=== PATIENT | female | born 1970 | race Hispanic/Latino ===

== ENCOUNTER 2017-03-07 09:11 | Inpatient (IN) | payer BC ==
[~2017-03-07] VITALS: Ht 157.5 cm; Wt 83.0 kg
[2017-03-18] MEDS ORDERED: IBUPROFEN600 MG PO (16:11)
--- NOTE | 2017-04-01 06:27 | NUR ---
CHG MOUTHWASH AND NASAL SWABS DONE PREOP.
--- NOTE | 2017-04-01 08:45 | NUR ---
04/01/17 0845 Diane Gonzales 7494-PATIENT ARRIVED TO PACU ON 6L MASK O2 SAT 100% PATIENT NONAROUSABLE. ORAL AIRWAY IN PLACE. DRESSING TO LEFT KNEE CDI. CRYO CUFF APPLIED. PALPABLE LEFT PEDAL PULSE. SR.
--- NOTE | 2017-04-01 10:23 | NUR ---
PT TO FLOOR TO ROOM 113 VIA BED, ACCOMPANIED BY PT'S DAUGHTER AND , WELL ALEXIS TRANSFER PROFESSOR. ARRIVED TO ROOM 113 AT 1000, RECIEVED BEDSIDE REPORT FROM ALEXIS. PT VERY DROWSY, AROUSABLE TO VERBAL STIMULI, DENIED PAIN, C/O NAUSEA, BUT FELL ASLEEP AGAIN IMEDIATELY FOLLOWING THIS REPORT. NO EMESIS OR DRY HEAVING. PT EQUATORIAL GUINEAN SPEAKING, DAUGHTER AND BILINGUAL, EQUATORIAL GUINEAN AND YAKUT. ASSESSMENT COMPLETE.
--- NOTE | 2017-04-01 11:06 | NUR ---
PT DROWSY, SLEEPING SOUNDLY, AROUSES TO VERBAL STIMULI. DAUGHTER AND REMAIN AT BEDSIDE. PT TITRATED TO RA, OXYGEN SATURATION LEVEL IS 98% WHILE ASLEEP. PEDAL PULSES EASILY PALPATED, CAPILARY REFILL TO LOWER EXTREMITIES LESS THAN 3 SECONDS, DRESSNG TO LEFT KNEE C/D/I.
--- NOTE | 2017-04-01 11:40 | NUR ---
PT DENIES NAUSEA, DENIES PAIN, REPORTS THAT ITCHING HAS IMPROVED SINCE RECIEVING PRN NUBAIN. ABLE TO WIGGLE TOES, ABLE TO FEEL DULL TOUGH TO BLE, INCLUDING FEET AND TOES, BUT DOES REPORT SOME FEELINGS OF REDUCED SENSATION AND TINGLING TO BLE. DRESSING TO LEFT KNEE C/D/I. PEDAL PULSES EASILY PALPATED, SKIN WARM.
--- NOTE | 2017-04-01 12:29 | NUR ---
PT ABLE TO MOVE FEET AND TOES. ABLE TO FEEL TOUCH TO BILATERAL FEET AND TOES. AROUSED TO VERBAL STIMULI. DRESSING TO LEFT KNEE C/D/I. PEDAL PULSES PALPABLE. PT DENIED PAIN, DID C/O NAUSEA, NO EMESIS. ATE SOME ICE CHIPS.
--- NOTE | 2017-04-01 12:30 | NUR ---
PATIENT IN BED. FAMILY IN ROOM. RN IN WITH PATIENT. NO NEEDS AT THIS TIME.
--- NOTE | 2017-04-01 12:36 | NUR ---
GAVE ZOFRAN 4 MG IV PRN FOR C/O NAUSEA. PT RESTING QUIETLY, FAMILY AT BEDSIDE.
--- NOTE | 2017-04-01 14:00 | NUR ---
FRESH ICE IN CRYO. FRESH ICE WATER. CALL BUTTON IN REACH FAMILY IN ROOM. NO OTHER NEEDS AT THIS TIME.
--- NOTE | 2017-04-01 14:47 | NUR ---
PT INCONTINENT OF LARGE AMOUNT OF URINE. ANILA, PHYSICAL THERAPIST, AND MAXWELL Horton RN ASSISTED PT TO BEDSIDE COMMODE. PT NAUSEATED, HAD SMALL AMOUNT OF EMESIS, AND DRY HEAVED NUMEROUS TIMES. PT REMAINS LETHARGIC. REQUIRED 3 PERSON ASSIST TO TRANSFER BACK TO BED AFTER VOIDING IN BEDSIDE COMMODE. PT NOW RESTING QUIETLY.
--- NOTE | 2017-04-01 14:57 | NUR ---
PATIENT UP TO COMMODE TO VOID, INCONTINENT OF HUGE AMOUNT OF ORANGE URINE. SCOPALIMINE PATCH REMOVED.
--- NOTE | 2017-04-01 15:03 | NUR ---
CALLED JASON DUKES CRNA, NOTIFIED HIM THAT PT HAS BEEN LETHARGIC SINCE ARRIVAL TO FLOOR, AND ALSO THAT PT HAS HAD NAUSEA, AND NOW EMESIS SINCE ARRIVAL TO FLOOR. NOTIFIED HIM THAT MAXWELL Horton RN REMOVED PT'S SCOPALAMINE PATCH WHEN ATTEMPTING TO TRANSFER PT TO AND FROM BEDSIDE COMMODE, AND PT HAD DIFFICULTY REMAINING ALERT ENOUGH TO ASSIST IN TRANSFER. JASON Pereira CRNA STATED THAT HE WOULD COME SEE PT.
--- NOTE | 2017-04-01 15:28 | NUR ---
JASON DUKES CRNA IN TO SEE PT. PT REMAINS DROWSY, SLEEPING WHEN WE ENTERED ROOM. JASON DISCUSSED PT'S DROWSINESS AND NAUSEA WITH PT'S DAUGHTER AND , WHO VERBALIZED UNDERSTANDING OF WHAT JASON DISCUSSED.
--- NOTE | 2017-04-01 16:10 | NUR ---
PATIENT RESTING IN BED. IN ROOM. CALL BUTTON IN REACH.
--- NOTE | 2017-04-01 17:34 | NUR ---
PT UP TO BEDSIDE COMMODE WITH 3 PERSON ASSIST. PT BECAME NAUSEATED AND HAD SMALL AMOUNT OF EMESIS WITH POSITION CHANGE. HAD CLEAR LIQUID DINNER, ONLY TOLERATED APROXIMATELY 50 CC TEA. PT REPORTED FEELING NAUSEATED WITH BROTH, JELLO, JUICE, BUT NO EMESIS WITH DINNER. PT NOW BACK IN BED AFTER USING COMMODE, DENIES FURTHER NAUSEA AT THIS TIME.
--- NOTE | 2017-04-01 18:16 | NUR ---
PATIENT RESTING IN BED WITH EYES CLOSED. FRESH ICE WATER GIVEN. ICE IN CRYO. CALL BUTTON IN REACH. IN ROOM. NO OTHER NEEDS AT THIS TIME.
--- NOTE | 2017-04-01 19:00 | NUR ---
RECEIVED REPORT FROM RN. PATIENT IS RESTING COMFORTABLY IN BED, BREATHING IS EVEN AND UNLABORED, O2 SAT IS 95% ON RA. DENIES NEEDS AT THIS TIME, REPORTS 1/[address] PAIN. ALL ORDERS IN PLACE, CALL LIGHT WITHIN REACH.
--- NOTE | 2017-04-01 19:58 | NUR ---
PATIENT UP TO BEDSIDE COMODE WITH 1PA/FWW/NON-SLIP SOCKS, WHICH SHE TOLERATED WELL WITHOUT COMPLAINTS OF PAIN. PRN ZOFRAN GIVEN DUE TO PATIENT'S COMPAINTS OF NAUSEA AFTER AMBULATION. PATIENT IS NOT CURRENTLY NAUSEATED. PAIN IS 1/10 IN LEFT KNEE, SCHEDULED TORDOL GIVEN. DENIES OTHER NEEDS AT THIS TIME. CALL LIGHT WITHIN REACH.
--- NOTE | 2017-04-01 20:41 | NUR ---
pt complained of pruritis. gave benedryl iv for itching. pt appears in no apparent distress. denies nausea. denies pain. daughter at bedside. all dr porter orders in place. cryo cuff filled with ice. fresh ice water at bedside. knees locked flat on bed. call light in reach.
--- NOTE | 2017-04-01 22:30 | NUR ---
PATIENT RESTING COMFORTABLY IN BED, BREATHING IS EVEN AND UNLABORED. O2 SATURATION IS 91% ON RA, PUT 1L O2 ON PATIENT VIA NC, O2 SAT IS NOW 96%. PAIN IS 1/10 IN LEFT KNEE, SCHEDULED PAIN MEDICATION GIVEN PER EMAR. DENIES OTHER NEEDS AT THIS TIME. ALL ORDERS IN PLACE, CALL LIGHT WITHIN REACH.
--- NOTE | 2017-04-02 01:13 | NUR ---
PATIENT RESTING IN BED COMFORTABLY, O2 SATURATION IS 99% ON 1L O2 VIA NC. REPORTS 1/10 PAIN IN LEFT KNEE. NO NEEDS AT THIS TIME. CALL LIGHT WITHIN REACH.
--- NOTE | 2017-04-02 02:03 | NUR ---
PATIENT UP TO BEDSIDE COMODE USING 1PA/FWW/NON-SLIP SOCKS. REPORTS 1/10 PAIN IN LEFT KNEE. SCHEDULED TORDOL GIVEN. PATIENT REPORTS ITCHING AGAIN, PRN BENEDRYL GIVEN PER EMAR. ASSESSMENT DONE, PATIENT DENIES NEEDS AT THIS TIME. ALL ORDERS IN PLACE, CALL LIGHT WITHIN REACH.
--- NOTE | 2017-04-02 03:48 | NUR ---
PATIENT RESTING COMFORTABLY IN BED. BREATHING IS EVEN AND UNLABORED, O2 SAT IS 97% ON RA. CALL LIGHT WITHIN REACH.
--- NOTE | 2017-04-02 05:01 | NUR ---
PATIENT'S NIGHT WAS UNEVENTFUL. SHE HAS BEEN RESTING COMFORTABLY THROUGHOUT SHIFT. VSS, PAIN HAS BEEN WELL CONTROLLED WITH SCHEDULED PAIN MEDICATION. SHE HAS BEEN RATING HER PAIN AT A 1/10 IN HER LEFT KNEE CONSISTENTLY THROUGHOUT SHIFT. AMBULATING TO BEDSIDE COMODE WITH 1PA/FWW, WHICH SHE HAS BEEN TOLERATING WELL WITHOUT ANY INCREASES IN PAIN. DRESSING REMAINS C/D/I, CMS IS INTACT. NO ACUTE CHANGES FROM BEGINNING OF SHIFT ASSESSMENT.
--- NOTE | 2017-04-02 06:34 | NUR ---
PATIENT RESTING COMFORTABLY IN BED. BREATHING IS EVEN AND UNLABORED, O2 SAT IS 97% ON RA. UP TO BEDSIDE COMODE WITH 1PA/FWW. REPORTS 3/10 PAIN IN LEFT KNEE, SCHEDULED TYLENOL GIVEN. PATIENT ALSO REPORTS ITCHING. PRN BENEDRYL GIVEN PER EMAR. DENIES OTHER NEEDS AT THIS TIME. ALL ORDERS IN PLACE, CALL LIGHT WITHIN REACH.
--- NOTE | 2017-04-02 06:57 | NUR ---
PATIENT REPORTS ITCHING AND NAUSEA. PRN BENEDRYL AND ZOFRAN GIVEN PER EMAR. DENIES OTHER NEEDS AT THIS TIME. CALL LIGHT WITHIN REACH.
--- NOTE | 2017-04-02 08:05 | OR ---
[facility] [address], [place] [address] Signed DATE OF PROCEDURE: 04/01/17 PREOPERATIVE DIAGNOSIS: Degenerative joint disease, left knee, severe. POSTOPERATIVE DIAGNOSIS: Degenerative joint disease, left knee, severe. PROCEDURE PERFORMED: Left total knee arthroplasty with computer navigation. SURGEON: Laney Schultz MD. CONCRETE GUN OPERATOR: Ping Ravi PA-C. Ping was present for the entire surgery and was critical for positioning, retraction, and wound closure. ANESTHESIA: Spinal with sedation. TOURNIQUET TIME: 64 minutes. IMPLANTS: [place] Triathlon size 3 with 11 mm insert, 32 mm patella. BRIEF HISTORY Son is a 46-year-old female with progressive worsening of osteoarthritis. She underwent arthroscopy, injections, bracing, and anti-inflammatories without substantial relief. She wished to proceed with operative intervention. The risks, benefits, and alternatives were discussed at length. She understands, wishes to proceed. DESCRIPTION OF PROCEDURE Once consent was obtained, she was taken to the operating room. After adequate anesthesia, she was placed on the operating table. All downside pressure points well padded. The left leg was placed in well-padded proximal thigh tourniquet and a hip bump. The leg was prepped and draped in the standard sterile fashion, exsanguinated using Esmarch bandage, and tourniquet inflated to 250 mmHg. The knee was approached through a curved incision, taken through skin and subcutaneous tissue. Median and parapatellar arthrotomy was performed. The infrapatellar fat pad was excised. The MCL was elevated off a sleeve around the posterior medial corner. The ACL was transected as was the anterior horns of the menisci. There was no significant medial meniscus remaining. The knee was flexed. Navigation guide was pinned to the distal femur and the femur was registered with the computer. The cutting block was then pinned in neutral alignment and set taking 9 mm off. The cut was made. The distal femur sized to a 3. The AP cutting block was then pinned in line with the epicondylar axis and the anterior posterior chamfer cuts were made. Osteophytes were removed. Attention was turned to proximal tibia. The tibial surface was cleaned of all miniscule and scar tissue. Navigation guide Electronically Signed By: LANEY SCHULTZ MD 04/02/17 0805 PATIENT NAME: SUZANNE RAMIREZ OPERATIVE REPORT DATE OF : 68 PHYSICIAN: LANEY SCHULTZ MD REPORT #: [id number] REPORT IS CONFIDENTIAL AND NOT TO BE RELEASED WITHOUT AUTHORIZATION [facility] [address], [place] [address] Signed was then pinned and the tibia was registered with the computer. The cutting block was then pinned in neutral alignment and the cut was made with care taken to protect the patellar tendon. The bone was excised as were any meniscal remnants. Posterior osteophytes removed off the femur and posterior release performed. The flexion-extension gaps were sized and found to be symmetric at 11 mm. The trials were then positioned. The knee was extended, taken through range of motion, and found to be quite stable. The PCL was in good shape. The patella was cut sized and drilled for a 32 patella. The drill holes in the in the femur replaced. The trials were removed. Proximal tibia was finished using the keel punch. The bone surfaces were pulse lavaged, packed with a dry Ray-Tata. Cement was mixed and reached proper consistency. We placed all implants on bone surfaces. Tibia was impacted in position first and any excess cement was removed. The polyethylene was snapped into position. The femur was impacted into position. Again, all excess cement was removed. The knee was extended and externally rotated. The patella was clamped and any remaining cement was removed. Cement was allowed to harden for 14 minutes. The knee was then flexed, any remaining cement was removed using osteotomes. The knee was pulse lavaged at intervals throughout the procedure. A total of 3 L antibiotic irrigation was used. The periarticular soft tissues were injected with a total 100 mL Ropivacaine and Toradol mixture. The arthrotomy was then closed using #1 Stratafix, subcutaneous tissue with 0 Stratafix, and skin with ozzy. The knee was dressed with Mepilex Ag dressing, ABD, and Sammy wrap. She was awakened and taken to recovery in satisfactory condition. All sponge, needle, instrument counts were correct. Laney Schultz MD BA/Modl /[id number] Electronically Signed By: LANEY SCHULTZ MD 04/02/17 0805 PATIENT NAME: SUZANNE RAMIREZ OPERATIVE REPORT DATE OF : 68 PHYSICIAN: LANEY SCHULTZ MD REPORT #: [id number] REPORT IS CONFIDENTIAL AND NOT TO BE RELEASED WITHOUT AUTHORIZATION
--- NOTE | 2017-04-02 08:18 | NUR ---
PATIENT LYING IN BED AWAKE WITH DAUGHTER AT BEDSIDE-- ABLE TO TRANSLATE FOR PATIENT. PAIN 3/10 IN LEFT KNEE. TOOK ALL SCHEDULED MEDS THIS MORNING. LEFT KNEE DRESSING C/D/I. PEDAL PULSES PRESENT BILAT. TOLERATED BREAKFAST WELL.
--- NOTE | 2017-04-02 09:54 | NUR ---
SBA TO BATHROOM WITH WALKER. AMBULATING WELL WITH STEADY GAIT. PAIN WELL CONTROLLED. PT UP IN RECLINER NOW WITH LEGS ELEVATED AND BELONGINGS IN REACH. PT USING INCENTIVE SPIROMETER. DIFFERENT DAUGHTER AT BEDSIDE NOW. PT URINATED 800CC INTO TOILET HAT. CRYOCUFF ON LEFT KNEE. CALL LIGHT WITHIN REACH.
--- NOTE | 2017-04-02 10:18 | NUR ---
PT AMBULATING HALLS WITH PHYSICAL THERAPY NOW. APPEARS TO BE TOLERATING AMBULATION WELL.
--- NOTE | 2017-04-02 11:00 | NUR ---
Filled pts cryo cuff with ice and offered a her a shower, she wants to wait until after she eats. her daughter was in the room and translated for me. Since she has been helping so much I offered her a caregiver tray.
--- NOTE | 2017-04-02 13:07 | NUR ---
PT C/O PAIN IN LEFT KNEE. 1400 MEDS GIVEN AT 1300. INFORMED TO NOTIFY NURSE IF PAIN MEDS DON'T GET PAIN UNDER CONTROL.
--- NOTE | 2017-04-02 18:00 | NUR ---
PAIN CONTROLLED WITH SCHEDULED MEDS AND DILAUDID 8MG PO X2. CLEARED BY PHYSICAL THERAPY TO GO HOME TOMORROW. 1PA TO BATHROOM. ROOM AIR. CONT PULSE OX D/Cd. SALINE LOCKED. LEFT KNEE C/D/I.
--- NOTE | 2017-04-02 19:15 | NUR ---
received report from rn. patient is resting comfortably in bed, breathing is even and unlabored. denies needs at this time. call light within reach.
--- NOTE | 2017-04-02 19:16 | NUR ---
PATIENT CALLED. ASSISTED WALK TO USE THE BATHROOM WITH WALKER. PATIENT BRUSHED HER TEETH. PATIENT IS BACK TO BED.CRYO CUFF SCDS BACK ON. DAUGHTER IN THE ROOM. CALL LIGHT WITHIN REACH.
--- NOTE | 2017-04-02 21:00 | NUR ---
pt complained of 8/10 pain, daughter stated that her mother (pt) states "it hurts really back. pt appears uncomfortable, grimmacing at the moment. gave scheduled toradol and nucynta for pain. will continue to monitor pain closely. pt also complained of feeling nauseous, gave compazine for nausea. refilled cryo cuff with ice and its in place.
--- NOTE | 2017-04-02 22:00 | NUR ---
PATIENT REPORTS PAIN IS 5/10 IN LEFT KNEE. PRN DILAUDID GIVEN PER EMAR. DENIES OTHER NEEDS AT THIS TIME. ALL ORDERS IN PLACE, CALL LIGHT WITHIN REACH.
--- NOTE | 2017-04-02 22:16 | NUR ---
UPDATED DR. BIGGS REGARDING PATIENT BEING ITCHY ALL DAY. NEW ORDER FOR BENEDRYL 25MG PO Q6H PRN FOR ITCHING.
--- NOTE | 2017-04-02 22:34 | NUR ---
PATIENT IS RESTING COMFORTABLY IN BED. BREATHING IS EVEN AND UNLABORED. PATIENT REPORTS THAT "PAIN IS BETTER" AND DOES NOT NEED MORE MEDICATION AT THIS TIME. AFTER GIVING CRACKERS AND 7-UP FOR NAUSEA, PATIENT DENIES NAUSEA AT THIS TIME. DENIES OTHER NEEDS. SHE STATES "I WOULD LIKE TO JUST SLEEP." CALL LIGHT WITHIN REACH.
--- NOTE | 2017-04-03 00:27 | NUR ---
PATIENT RESTING COMFORTABLY IN BED, BREATHING IS EVEN AND UNLABORED. NO APPARENT SIGNS OF DISCOMFORT, FLACC SCORE OF 0. CALL LIGHT WITHIN REACH.
--- NOTE | 2017-04-03 02:25 | NUR ---
PATIENT UP TO BATHROOM WITH 1PA/FWW/NON-SLIP SOCKS ON. REPORTS 6/10 PAIN IN LEFT LEG. SCHEDULED PAIN MEDICATION GIVEN. EDUCATED PATIENT WITH USE OF DAUGHTER ALLEY CLEANER ABOUT PAIN CONTROL MEASURES. PATIENT STATES THAT SHE UNDERSTANDS. DENIES OTHER NEEDS AT THIS TIME. ALL ORDERS IN PLACE, CALL LIGHT WITHIN REACH.
--- NOTE | 2017-04-03 04:12 | NUR ---
PATIENT IS RESTING COMFORTABLY IN BED, BREATHING IS EVEN AND UNLABORED. REPORTS 2/10 PAIN IN LEFT KNEE AND DENIES PAIN MEDICATION. CHANGED ICE FOR CRYOCUFF, ALL ORDERS IN PLACE. CALL LIGHT WITHIN REACH.
--- NOTE | 2017-04-03 05:19 | NUR ---
PATIENT'S NIGHT WAS UNEVENTFUL. SHE HAS BEEN RESTING COMFORTABLY IN BED THROUGHOUT MAJORITY OF SHIFT. AFTER EDUCATING THE PATIENT ON PAIN CONTROL, PAIN HAS BEEN WELL CONTROLLED WITH PRN AND SCHEDULED PAIN MEDICATION. VSS. DRESSING TO LEFT KNEE REMAINS C/D/I, CMS INTACT. NAUSEA HAS ALSO BEEN WELL CONTROLLED WITH PRN ZOFRAN AND COMPAZINE. IV TO RIGHT ARM IS SALINE LOCKED. SHE IS A 1PA WITH FWW. NO ACUTE CHANGES FROM BEGINNING OF SHIFT ASSESSMENT.
--- NOTE | 2017-04-03 06:10 | NUR ---
PATIENT RESTING COMFORTABLY IN BED, BREATHING IS EVEN AND UNLABORED. REPORTS 4/10 PAIN IN LEFT KNEE AFTER AMBULATION TO BATHROOM WITH 1PA/FWW. SCHEDULED TYLENOL AND 4 MG PRN DILAUDID PO GIVEN. DENIES OTHER NEEDS AT THIS TIME. ALL ORDERS IN PLACE, CALL LIGHT WITHIN REACH.
--- NOTE | 2017-04-03 06:17 | NUR ---
ASSISTED PATIENT TO THE BATHROOM AND BACK TO BED. SCD AND CRYO CUFF BACK ON. CRYO REFILLED.
--- NOTE | 2017-04-03 07:55 | NUR ---
STAND BY ASSIST FROM BED TO CHAIR. PATIENT WASHED FACE AND HANDS. FRES ICE WATER GIVEN. CRYO ON. ORDERED BREAKFAST. NO OTHER NEEDS AT THIS TIME. DAUGHTER SLEEPING ON COUCH.
--- NOTE | 2017-04-03 08:10 | NUR ---
PT ASSISTED TO BATHROOM, STANDBY ASSIST USING FWW. PT TOLERATED AMBULATION TO BATHROOM WELL.
--- NOTE | 2017-04-03 08:25 | NUR ---
STAND BY ASSIST FROM BATHROOM TO CHAIR. ORAL CARE DONE. CRYO ON. CALL BUTTON IN REACH. NO OTHER NEEDS AT THIS TIME.
--- NOTE | 2017-04-03 08:38 | NUR ---
PT SITTING UP IN RECLINER. RATED PAIN TO LEFT KNEE 4/10, GAVE SCHEDULED NUCYNTA. PT REPORTED PAIN WITH SALINE FLUSH OF IV, SO IV TORADOL HELD AT THIS TIME. PT DID NOT EAT MUCH BREAKFAST, REPORTED SHE WAS NOT VERY HUNGRY. ATE APROXIMATELY 5%, BUT DID DRINK 400 CC FLUIDS. NO C/O NAUSEA, NO EMESIS.
--- NOTE | 2017-04-03 08:56 | NUR ---
PT C/O PAIN WITH FLUSH, POSSIBLE INFILTRATION, DID NOT GIVE SCHEDULED IV MEDICATION. NOTIFIED DR. BIGGS, REQUESTED ORDER TO LEAVE IV OUT IF PT IS TO DISCHARGE TODAY. DR. BIGGS HAS NOT YET SEEN PT, SO DISCHARGE IS NOT CERTAIN.
[2017-04-03] MEDS ORDERED: NUCYNTA50 MG PO (09:04)
[2017-04-03] MEDS ORDERED: MIRALAX17 GM PO (09:04)
[2017-04-03] MEDS ORDERED: HYDROMORPHONE HC4 MG PO (09:04)
[2017-04-03] MEDS ORDERED: PROCHLORPERAZIN10 MG PO (09:04)
--- NOTE | 2017-04-03 09:05 | NUR ---
D/C'D PT'S IV. TISSUE AROUND IV INSERTION SITE WNL, NO SIGNS OF INFILTRATION. D/C'D PER DR. BIGGS. PT TO DISCHARGE TODAY. RECIEVED VORB FROM DR. BIGGS TO REDRESS LEFT KNEE SURGICAL INCISION WITH MEPILEX AND ERUM WRAP.
--- NOTE | 2017-04-03 09:08 | NUR ---
SPOKE WITH DR. BARRETT, WHO IS CONSULTING FOR MEDICAL COMANAGEMENT ON THIS PT, NOTIFIED HER THAT DR. BIGGS HAS WRITTEN DISCHARGE TO HOME ORDERS. DR. ROTH VERBALIZED THAT SHE IS ALSO OK WITH PT DISCHARGING TO HOME.
--- NOTE | 2017-04-03 09:29 | NUR ---
REDRESSED LEFT KNEE WOUND WITH MEPILEX AND ERUM WRAP. EDUCATED PT AND DAUGHTER ON NEED TO KEEP DRESSING CLEAN, DRY, AND INTACT.
[2017-04-03] MEDS ORDERED: XARELTO10 MG PO (09:39)
--- NOTE | 2017-04-03 10:31 | NUR ---
PT SITTING UP IN RECLINER, DAUGHTER AT BEDSIDE. GAVE DAUGHTER AND PT DISCHARGE INSTRUCTIONS. EDUCATION PROVIDED IN [employer] [facility] [place]. DAUGHTER PROVIDED INTERPRETATION NEEDED. PT AND DAUGHTER VERBALIZED UNDERSTANDING.
--- NOTE | 2017-04-03 10:48 | NUR ---
CALLED [facility] AND LET THEM KNOW I WOULD BE FAXING CHART NOTES AND ORDERS FOR OP PT. TALKED TO JIM. FAXED CHART NOTES INCLUDING FACESHEET, ORDER, H AND P, OP NOTE, CONSULT, LAB, PT AND OT EVAL AND NOTES.
--- NOTE | 2017-04-03 11:30 | NUR ---
ASSISTED PATIENT WITH SHOWER AND DRESSING FOR DISCHARGE TO HOME.
--- NOTE | 2017-04-03 11:50 | NUR ---
LATE ENTRY FOR 04/03/17, AT 1150: PT NAUSEATED JUST PRIOR TO DISCHARGE, GAVE ZOFRAN 4 MG PO.
--- NOTE | 2017-04-05 07:39 | DS ---
[facility] [address], [place] [address] Signed ADMISSION DATE: 04/01/2017 DISCHARGE DATE: 04/03/2017 PREOPERATIVE DIAGNOSIS: Severe degenerative joint disease of left knee. DISCHARGE DIAGNOSIS: Severe degenerative joint disease of left knee. PROCEDURE PERFORMED: Left total knee arthroplasty. BRIEF HISTORY: Suzanne is a 46-year-old female who had progressive worsening of her arthritis despite nonoperative care including bracing, injections, anti-inflammatory and arthroscopy. She wished to proceed with knee replacement. Risks, benefits, and alternatives were discussed at length. She understood and wished to proceed. Once the consent was obtained, she was taken to the operating room. After adequate anesthesia, she underwent the above-named procedure. She tolerated this well. She was taken to the recovery room subsequently to the orthopedic floor. She was initially placed on pain medication of 100 mg q.6 hours and Dilaudid 4 mg to 8 mg q.4 hours p.r.n. She tolerated this nicely and did well with her pain, although she had some nausea. The nausea was managed with a combination of Zofran and Compazine. She felt the Compazine worked better. She was seen by Physical Therapy and able to ambulate up and down the hallway and up and down the stairs by the day of discharge. She had good safety profile throughout. She was kept on DVT prophylaxis with SCDs, TEDs, and Xarelto 10 mg p.o. daily. She will be followed with another 7 days of Xarelto. She will also start outpatient physical therapy later this week and follow up with me in 10 to 14 days. She will notify me if she has any problems any sooner. Laney Schultz MD BA/MODL /[id number] Electronically Signed By: LANEY SCHULTZ MD 04/05/17 0739 PATIENT NAME: SUZANNE RAMIREZ DISCHARGE SUMMARY DATE OF : 68 PHYSICIAN: LANEY SCHULTZ MD REPORT #: [id number] REPORT IS CONFIDENTIAL AND NOT TO BE RELEASED WITHOUT AUTHORIZATION [address] [place], [place] [address] Signed Electronically Signed By: LANEY SCHULTZ MD 04/05/17 0739 PATIENT NAME: SUZANNE RAMIREZ DISCHARGE SUMMARY DATE OF : 68 PHYSICIAN: LANEY SCHULTZ MD REPORT #: [id number] REPORT IS CONFIDENTIAL AND NOT TO BE RELEASED WITHOUT AUTHORIZATION
== END 2017-04-03 11:55 | disposition home or self-care (01) | DRG 470 ==
LOC: DSVR 04-01 05:45 → MS 04-01 06:45
PROVIDERS: ADMIT Specialist
PROC: 0SRD0J9 Replacement of Left Knee Joint with Synthetic Substitute, Cemented, Open Approach (ICD-10-PCS; principal; 2017-04-01 06:45)
DX: M17.12 Unilateral primary osteoarthritis, left knee (principal)
CPT/HCPCS: 01402; 36415; 64447; 76942; 80048; 85025; 94762; 97110; 97116; 97161; C1713; C1776; J0690; J0735; J1100; J1200; J1885; J2250; J2274; J2300; J2405; J2550; J2704; J2765; J3010; J7120